=== PATIENT | male | born 1985 | race Two or more races ===

== ENCOUNTER 2024-12-02 15:08 | Inpatient (IN) | payer OTHER, SELFPAY ==
[2024-12-02] VITALS (10 sets, daily range): BP systolic 143–169; BP diastolic 88–101; PULSE 90–105; RESP 16–24; TEMP 36.7–37.2; O2SAT 86–99; BMI 52.4
--- NOTE | 2024-12-02 15:35 | XR_ITS ---
Examination: PA lateral chest 2 views Technique: Upright AP lateral chest 2 views Exam date and time: December 02, 2024 1631 hrs. Indications: Shortness of breath beginning 2 days ago. Findings: Mild heart failure Mild to moderate enlargement left ventricle Prominent vascular congestion No lobar pneumonia The osseous structures are intact Impression: Mild heart failure
--- NOTE | 2024-12-02 15:36 | EKG_ITS ---
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
--- NOTE | 2024-12-02 15:36 | PD.EDRME ---
Rapid Medical Screening Exam E Arrival date/time: 12/02/24 15:08 This is a 39-year-old male that comes in with complaints of shortness of breath, cough, chest pressure And wheezing. Patient states it has been going on for the last few days. Patient has a history of high blood pressure but does not take medication for this. Patient denies fever, nausea, vomiting, diarrhea. I have greeted and performed a focused initial assessment of this patient. Initial appropriate labs ordered at this time. A comprehensive ED assessment and evaluation of the patient and analysis of all test and completion of medical decision making process will be conducted by additional ED provider. Chief Complaint: Shortness of Breath/Dyspnea Time Seen by Provider: 12/02/24 15:30 Vital signs: Vital Signs Temperature 98.5 F 12/02/24 15:31 Pulse Rate 103 H 12/02/24 15:31 Respiratory Rate 24 H 12/02/24 15:31 Blood Pressure 159/89 H 12/02/24 15:31 Pulse Oximetry (%) 95 12/02/24 15:31 Oxygen Delivery Method Room Air 12/02/24 15:31
[2024-12-02] MEDS: ALBUTEROL RT 2.5 MG/0.5 ML NEBU INH (15:50)
[2024-12-02] MEDS: SODIUM CHLORIDE RT SOL 0.9% 3 ML NEBU INH (15:50)
[2024-12-02 16:07] LABS: Basophils % (Auto) 1 % (0-2.5); Eosinophils # (Auto) 0.1 Thou/mm3 (0.0-0.5); Eosinophils % (Auto) 2 % (0-10); Hematocrit 48.9 % (41.0-53.0); Hemoglobin 15.7 g/dL (13.5-16.0); Immature Granulocytes % (Auto) 1 % (0-0); Immature Granulocytes Auto 0.04 Thou/mm3 (0.00-0.00); Lymphocytes # (Auto) 0.9 Thou/mm3 (1.0-4.8); Lymphocytes % (Auto) 16 % (10-50); Mean Corpuscular HGB Conc 32.1 g/dl (31.0-37.0); Mean Corpuscular Hemoglobin 29.6 pg (25.0-35.0); Mean Corpuscular Volume 92 fL (80-100); Monocytes # (Auto) 0.7 Thou/mm3 (0.0-0.8); Monocytes % (Auto) 13 % (0-12); Neutrophils # (Auto) 3.7 Thou/mm3 (1.8-7.7); Neutrophils % (Auto) 68 % (37-80); Nucleated Red Blood Cell % 0 /100 WBC (0); Platelet Count 208 Thou/mm3 (140-440); RDW Standard Deviation 46.4 fL (35.1-43.9); White Blood Count 5.5 Thou/mm3 (3.8-10.6)
[2024-12-02 16:33] LABS: Alanine Aminotransferase 23 U/L (10-49); Albumin/Globulin Ratio 1.7 (1.2-2.2); Alkaline Phosphatase 57 U/L (46-116); Anion Gap 6 (7-16); Aspartate Amino Transferase 21 U/L (0-34); BUN/Creatinine Ratio 10 Ratio (12-20); Bilirubin,Total 0.3 mg/dL (0.3-1.2); Blood Urea Nitrogen 8 mg/dL (9-23); Calcium 9.6 mg/dL (8.3-10.6); Calcium (Corrected) 9.6 mg/dL (8.5-10.1); Carbon Dioxide 33.8 mMol/L (20.0-31.0); Chloride 98 mMol/L (98-107); Creatinine (Component) 0.8 mg/dL (0.6-1.3); Estimated Creatinine Clearance 168.8 mL/min (>60); Globulin 2.9 gm/dL (2.3-3.5); Glucose 116 mg/dL (74-106); Osmolality,Calculated 274 (275-295); Potassium 4.2 mMol/L (3.4-5.1); Sodium 138 mMol/L (136-145); Total Protein 7.9 gm/dL (5.7-8.2); Troponin I < 0.002 ng/mL (0.0-0.045); eGFR > 60 See Note
--- NOTE | 2024-12-02 18:36 | PD.EDSOB ---
ED SOB =RME/HPI General Chief Complaint: Shortness of Breath/Dyspnea Stated Complaint: cp, sob, cough Time Seen by Provider: 12/02/24 15:30 Source: patient Arrival date/time: 12/02/24 15:08 Mode of arrival: ambulatory Limitations: no limitations RME / HPI RME / HPI Narrative: 12/02/24 15:08 This is a 39-year-old male that comes in with complaints of shortness of breath, cough, chest pressure And wheezing. Patient states it has been going on for the last few days. Patient has a history of high blood pressure but does not take medication for this. Patient denies fever, nausea, vomiting, diarrhea. I have greeted and performed a focused initial assessment of this patient. Initial appropriate labs ordered at this time. A comprehensive ED assessment and evaluation of the patient and analysis of all test and completion of medical decision making process will be conducted by additional ED provider. Dr. Avelar?s Main ED Evaluation: 39-year-old male presents to the emergency department with 2 days of cough, increasingly severe shortness of breath, wheezing and substernal chest pressure which is mild. Patient states he is a non-smoker. He has hypertension but states the doctors told him to use diet and exercise to lose some weight and he was supposed to go back to see them for reevaluation. He has not done that yet. No hypercholesterolemia or diabetes. No family history of early onset cardiac disease. Patient states he started coughing 2 days ago and its become more severe over time. The chest pressure began light about the same time as the coughing began. He states he was playing with his nephews today when he became very short of breath and became concerned and came to the emergency department. Patient denies fevers, shakes, chills, sweats. No runny nose or sneezing. No nausea, vomiting, diarrhea. No diaphoresis. No radiation of the substernal chest pressure. Patient has never experienced symptoms like this before. At home, mom gave him a albuterol neb as well as her Advair (or Advair like medication). Patient states the neb helped a little bit but the other medicine did not help very much. Patient also states that he thinks that he has obstructive sleep apnea and he usually sleeps on his stomach. Related Data Home Medications ?Medication ?Instructions ?Recorded ?Confirmed No Known Home Medications 12/03/24 12/03/24 Allergies Allergy/AdvReac Type Severity Reaction Status Date / Time amoxicillin Allergy Verified 12/02/24 15:09 Review of Systems Review of Systems Systems Reviewed: All systems reviewed, normal except as documented Past Medical History Past Medical History NEUROLOGIC: Negative Neurological Disorders CARDIAC: Positive Hypertension; Negative Cardiac Disorders or Congestive Heart Failure RESPIRATORY: Negative Respiratory Disorders, Chronic Obstructive Pulmonary Disease (COPD) or Asthma GASTROINTESTINAL: Negative Gastrointestinal Disorders GENITOURINARY: Negative Genitourinary Disorders or Renal Disease MUSCULOSKELETAL: Negative Musculoskeletal Disorders ENDOCRINE: Negative Diabetes Mellitus Type 1 or Diabetes Mellitus Type 2 HEMATOLOGIC: Negative Blood Disorders or Sickle Cell Disease Social History SMOKING STATUS: Never smoker ED Exam Narrative Physical exam: GENERAL APPEARANCE: alert and oriented x 4, well-developed, well-nourished, no acute distress. Patient is morbidly obese VITALS: All vitals were reviewed and the pulse ox is 95% on room air, which is normal according to my interpretation. HEENT: Normocephalic, atraumatic; pupils equal, round, reactive to light; EOMI; mucous membranes pink, moist; oropharynx clear NECK: Supple LUNGS: Some tachypnea at about 25-30, he has wheezing throughout all lung field, diminished lung sounds in the left base. HEART: mild tachycardia and right at 100-105; normal S1, S2; no murmurs ABDOMEN: non distended; normal BS; soft, no tenderness, no guarding, no rebound; no masses, no organomegaly, no hernia BACK: no CVA tenderness EXTREMITIES: atraumatic; no edema NEUROLOGIC: awake; alert and oriented x4; cranial nerves II-XII grossly intact; no focal sensory or motor deficits PSYCHIATRIC: appropriate mood and affect SKIN: warm, dry, normal color; no rashes General Limitations: Present no limitations Course Quality Measures none Orders Category Date Time Status Bedside COVID-19 Antigen Test NOW Care 12/02/24 15:35 Active Bedside Influenza A&B Antigen Test NOW Care 12/02/24 15:[address] Screening NOW Care 12/02/24 18:47 Active Face Cleaner Q4H START 00 Care 12/02/24 18:44 Active Continuous Pulse Oximetry ONCE Care 12/02/24 18:44 Active EKG (ED ONLY) *Do not use* NOW Care 12/02/24 15:36 Completed Insert IV STAT Care 12/02/24 18:[address] angio chest Stat Exams 12/02/24 18:47 Completed EKG (ED Only) Stat Exams 12/02/24 15:36 Draft XR chest 2V Stat Exams 12/02/24 15:35 Completed Arterial Blood Gas Stat Lab 12/03/24 00:50 Completed B-Type Natriuretic Peptide Stat Lab 12/02/24 19:15 Completed Blood Culture (Lab) Stat Lab 12/02/24 19:15 Received CBC Stat Lab 12/02/24 15:45 Completed Comprehensive Metabolic Panel Stat Lab 12/02/24 15:45 Completed Drug Screen,Urine Stat Lab 12/02/24 19:15 Ordered LDH (Lactate Dehydrogenase) Stat Lab 12/02/24 19:15 Completed Lactate (Lactic Acid) Stat Lab 12/02/24 19:15 Completed Lipase Stat Lab 12/02/24 19:15 Completed Partial Thromboplastin Time Stat Lab 12/02/24 19:15 Completed Phosphorous Stat Lab 12/02/24 19:15 Completed Procalcitonin Stat Lab 12/02/24 19:15 Completed Prothrombin Time with INR Stat Lab 12/02/24 19:15 Completed Troponin I Stat Lab 12/02/24 15:45 Completed Troponin I Stat Lab 12/02/24 19:15 Completed Urinalysis Stat Lab 12/02/24 18:45 Ordered ALBUTEROL RT 0.5ml [Proventil Rt 0.5ml] Med 12/02/24 15:35 Discontinued 2.5 mg INH X1 ONE Albuterol/Ipratr Rt Nancy [Duoneb Rt Nancy] Med 12/02/24 21:14 Discontinued 3 ml INH X1 ONE Azithromycin Inj [Zithromax Inj] 500 mg Med 12/02/24 18:49 Discontinued Sodium Chloride 0.9% 250 ml [Ns] 250 ml IV X1 Sodium Chloride Rt Nancy 0.9% [NS Rt Nancy 0.9%] Med 12/02/24 15:35 Active 3 ml INH PRN PRN cefTRIAXone/D5w 1gm IV premix [Rocephin/D5w 1gm IV Med 12/02/24 18:48 Discontinued premix] 50 ml IV X1 Oxygen Delivery NOW RT 12/02/24 18:44 Active Vital Signs Vital signs: Vital Signs Temperature 98.5 F 12/02/24 15:31 Pulse Rate 103 H 12/02/24 15:31 Respiratory Rate 24 H 12/02/24 15:31 Blood Pressure 159/89 H 12/02/24 15:31 Pulse Oximetry (%) 95 12/02/24 15:31 Oxygen Delivery Method Room Air 12/02/24 15:31 Procedures -ED Procedure Comment Patient's EKG at 16:00 showed sinus tachycardia at 100 with right axis deviation, no ectopy. No signs of acute ischemia. QRS is 85 and QTc is 372. Shortness of Breath / Dyspnea MDM Narrative [facility] Narrative:: On exam the patient has morbid obesity, Some tachypnea at about 25-30, he has wheezing throughout all lung field, diminished lung sounds in the left base, mild tachycardia and right at 100-105. Patient arrived here in the emergency department and was given an albuterol neb. A basic workup was ordered including CMP, CBC and a Trop. Chest x-ray and EKG. 2 view chest x-ray is being read by Dr. Mackay as showing mild heart failure, however I disagree. To me it looks more like patient has a left lower lobe pneumonia more than failure. He also looks like he has cardiomegaly or perhaps a wide mediastinum. I have ordered a CT chest with contrast. I also ordered a full cardiac workup as well as sepsis workup. I have included a BNP, lactate, blood cultures. Patient's EKG at 16:00 showed sinus tachycardia at 100 with right axis deviation, no ectopy. No signs of acute ischemia. QRS is 85 and QTc is 372. 21:20 CT shows patient has a left lower lobe and right upper lobe pneumonia. On 2 L nasal cannula the patient is right at 92%. He arrived tachycardic and tachypneic. With his 2 abnormal vital signs and his infection patient meets sepsis criteria. Plus he is too symptomatic to go home. Will admit. 21:22 Dr Rodriguez. We discussed the patient's case in detail. She kindly agreed to come see the patient for admission. I spoke with the patient and mom at length regarding need for admission. Scribe Attestation: I, Cecily Gutierrez, am scribing for and in the presence of Dr. Avelar. Provider Notation: Although this document has been carefully reviewed, there may still be some phonetic and other typographical errors. These errors are purely grammatical due to imperfections in the software program and should not be construed in any way to compromise the substance of the patient's medical care during this visit. Patient data External records reviewed:: [facility] previous records Clinical information provided by:: patient Social determinants that could affect healthcare access:: none Patient has the following chronic illnesses:: Hypertension How is presenting disease/condition affected by chronic disease/condition?: uneffected by Evaluation data The following diagnostics were reviewed and interpreted by me:: lab results, radiology exam(s) and EKG tracing(s) Lab and/or radiology exams considered but not ordered:: None Interpretation Summary: Examination: PA lateral chest 2 views Exam date and time: December 02, 2024 1631 hrs. Indications: Shortness of breath beginning 2 days ago. Findings: Mild heart failure Mild to moderate enlargement left ventricle Prominent vascular congestion No lobar pneumonia The osseous structures are intact Impression: Mild heart failure Dictated By: Jordon Headley MD Examination: CTA chest with intravenous contrast Date and time of exam: December 02, 2024 1915 hrs. Indications: Hypoxia shortness of breath difficulty breathing beginning 2 days ago Findings: No thoracic aortic aneurysm dilatation Main pulmonary artery segment 33 mm No pulmonary artery emboli Mild pneumonia in the right upper lobe and left base No visualized liver lesion No gallstones No pancreatic mass Kidneys partially visualized no hydronephrosis Impression: Negative for pulmonary artery emboli mild pneumonia right upper lobe and left base Dictated By: Jordon Headley MD Medications / Prescriptions Medications or Prescriptions considered but not ordered:: None Medication administrations:: Medication Administration History Acetaminophen (Acetaminophen 325 Mg Tablet) 650 mg PO Q6H PRN PRN Reason: Fever >101.5 Stop: 01/01/25 22:24 Albuterol/Ipratropium (Albuterol/Ipratropium (Duoneb) Rt Nancy 3 Ml Nebu) 3 ml INH Q6HRRT EVY Stop: 01/02/25 00:59 Last Admin: 12/03/24 00:35 Dose: 3 ml Documented By: JAYME Losartan Potassium (Losartan Potassium 25 Mg Tablet) 25 mg PO QDAY [facility] Stop: 01/02/25 08:59 Magnesium Hydroxide (Milk Of Magnesia Susp 30 Ml Udc) 30 ml PO QDAY PRN; Protocol PRN Reason: CONSTIPATION Stop: 01/01/25 22:24 Ondansetron HCl (Ondansetron Inj 2 Mg/Ml Inj 2 Ml) 4 mg IV Q6H PRN; Protocol PRN Reason: NAUSEA OR VOMITING Stop: 01/01/25 22:24 Pantoprazole Sodium (Pantoprazole 40 Mg Tablet) 40 mg PO QDAY EVY Stop: 01/02/25 08:59 Sodium Chloride (Sodium Chloride Rt Nancy 0.9% 3 Ml Nebu) 3 ml INH PRN PRN PRN Reason: SOLN Stop: 01/01/25 15:34 Last Admin: 12/02/24 15:50 Dose: 3 ml Documented By: CHAGO Discontinued Medications Albuterol (Albuterol Rt 2.5 Mg/0.5 Ml Nebu) 2.5 mg INH X1 ONE Stop: 12/02/24 15:36 Last Admin: 12/02/24 15:50 Dose: 2.5 mg Documented By: CHAGO Albuterol/Ipratropium (Albuterol/Ipratropium (Duoneb) Rt Nancy 3 Ml Nebu) 3 ml INH X1 ONE Stop: 12/02/24 21:15 Last Admin: 12/02/24 21:25 Dose: 3 ml Documented By: JAYME Furosemide (Furosemide Inj 10 Mg/Ml 4ml Vial) 40 mg IVP X1 ONE Stop: 12/02/24 22:53 Last Admin: 12/02/24 23:53 Dose: 40 mg Documented By: SRINIVASA Ceftriaxone Sodium/Dextrose (Rocephin/D5w 1gm Iv Premix) 50 mls @ 100 mls/hr IV X1 ONE Stop: 12/02/24 19:17 Last Infusion: 12/02/24 21:45 Dose: Infused Documented By: Admin: 12/02/24 20:20 Dose: 100 mls/hr Documented By: SRINIVASA Azithromycin 500 mg/ Sodium (Chloride) 250 mls @ 250 mls/hr IV X1 ONE Stop: 12/02/24 19:48 Last Infusion: 12/02/24 21:50 Dose: Infused Documented By: Admin: 12/02/24 20:46 Dose: 250 mls/hr Documented By: SRINIVASA Losartan Potassium (Losartan Potassium 25 Mg Tablet) 25 mg PO X1 ONE Stop: 12/03/24 01:00 Sodium Chloride (Sodium Chloride Rt 10% 15 Ml Nebu) 5 ml INH X1 ONE Stop: 12/02/24 22:26 Last Admin: 12/03/24 01:04 Dose: Not Given Documented By: NE Non-Admin Reason: Other, see note Comments: pt able to expectorate As above Consultations Consultation(s) initiated? (list below): Yes Consultation #1 (Physician, Specialty, Details): See MDM Diagnosis Shortness of Breath Differential Diagnosis: acute exacerbation of chronic obstructive airways disease, congestive heart failure and community acquired pneumonia Most likely diagnosis given after review of the tests above:: CHF Admission Indicated Admission indicated?: indicated Admission Request Was there a request for admission?: Yes Admission Attestation Admission request attestation: Discussed case with [] from Hospitalist service regarding admission. Discussed patients ED course, exam findings, labs, and radiology results. The Hospitalist [agrees,declines] to accept the patient for admission. Disposition Plan Disposition Plan: Admit Critical Care Time Critical Care Time Critical Care Time: Yes Total Critical Care Time (min.): 35 Attestation: The high probability of sudden, clinically significant deterioration in the patient?s condition required the highest level of my preparedness to intervene urgently. The services I provided to this patient were to treat and/or prevent clinically significant deterioration. Services included the following: chart data review, reviewing nursing notes and/or old charts, documentation time, legal nurse consultant collaboration regarding findings and treatment options, medication orders and management, direct patient care, vital sign assessments and ordering, interpreting and reviewing diagnostic studies and lab tests. Aggregate critical care time includes only time during which I was engaged in work directly related to the patient?s care, as described above, whether at bedside or elsewhere in the Emergency Department. It did not include time spent performing other reported procedures or the services of residents, students, nurses or physician assistants. Discharge Plan Plan Patient Disposition: Admit Acute Care w/in Hospital Patient condition on transfer: Stable Problem List Clinical Impression: Congestive heart failure
--- NOTE | 2024-12-02 18:47 | XR_ITS ---
Examination: CTA chest with intravenous contrast 2-D reconstructions 3-D reconstructions, vascular Date and time of exam: December 02, 2024 1915 hrs. Indications: Hypoxia shortness of breath difficulty breathing beginning 2 days ago CTDI: vol (mGy) 47.3 DLP: (mGycm) 619 Technique: Multiple axial sections of the thorax have been obtained. 3 mm slice thickness, from below the hemidiaphragms to above the apices of the lungs. Mediastinal and lung density settings have been obtained. 2-D sagittal and coronal reconstructions. 3-D angiographic renderings, 3-D volume renderings, 3D post processing, vascular maximum intensity projections obtained. Contrast administered is 100 cc Isovue-370. Low dose protocols were performed. One or more of the following dose reduction techniques were used; automated exposure control, adjustment of the mA and/or KV according to patient size, use of iterative reconstruction technique. Findings: No thoracic aortic aneurysm dilatation Main pulmonary artery segment 33 mm No pulmonary artery emboli Mild pneumonia in the right upper lobe and left base No visualized liver lesion No gallstones No pancreatic mass Kidneys partially visualized no hydronephrosis Impression: Negative for pulmonary artery emboli mild pneumonia right upper lobe and left base
[2024-12-02 20:18] LABS: Lactate (Lactic Acid) 0.7 mMol/L (0.4-2.0)
[2024-12-02] MEDS: cefTRIAXone/D5w 1gm IV premix 50 ML IV (20:20)
[2024-12-02 20:35] LABS: Prothrombin Time 11.3 Seconds (9.0-12.2)
[2024-12-02 20:39] LABS: B-Type Natriuretic Peptide < 20 pg/mL (0-100)
[2024-12-02 20:44] LABS: Lipase 33 U/L (12-53); Phosphorous 3.8 mg/dL (2.4-5.1); Troponin I < 0.002 ng/mL (0.0-0.045)
[2024-12-02] MEDS: AZITHROMYCIN INJ 500 MG in SODIUM CHLORIDE 0.9% 250 ML 250 ML 250 MG IV (20:46)
[2024-12-02 21:02] LABS: Procalcitonin 0.12 ng/ml (0.0-0.49)
[2024-12-02 21:19] LABS: LDH (Lactate Dehydrogenase) 212 U/L (120-246)
[2024-12-02] MEDS: ALBUTEROL/IPRATROPIUM (Duoneb) RT SOL 3 ML NEBU INH (21:25)
--- NOTE | 2024-12-02 22:30 | ECHO_ITS ---
Transthoracic Echo Report Ht (in): 66 Wt (lb): 325 Exam Location: Portable Status: Emergency Bass Fisher: Naila Quijano Indications: Procedure Performed: BP: 137 / 83 HR: 98 Rhythm: Sinus Technical Quality: Technically difficult study MEASUREMENTS (Male / Female) Normal Values 2D ECHO LV Diastolic Diameter PLAX 4.9 cm 4.2 - 5.9 / 3.9 - 5.3 cm LV Systolic Diameter PLAX 3.6 cm IVS Diastolic Thickness 1.1 cm 0.6 - 1.0 / 0.6 - 0.9 cm LVPW Diastolic Thickness 1.1 cm 0.6 - 1.0 / 0.6 - 0.9 cm LV Relative Wall Thickness 0.4 LVOT Diameter 2.0 cm LA Volume Index 15.0 cm?/m? 16 - 28 cm?/m? Ascending Aorta Diameter 3.2 cm M-MODE Aortic Root Diameter MM 3.9 cm LA Systolic Diameter MM 4.0 cm LA Ao Ratio MM 1.0 AV Cusp Separation MM 2.1 cm DOPPLER AV Peak Velocity 136.0 cm/s AV Peak Gradient 7.4 mmHg AV Mean Gradient 4.0 mmHg AV Velocity Time Integral 26.4 cm LVOT Peak Velocity 116.0 cm/s LVOT Peak Gradient 5.4 mmHg LVOT Velocity Time Integral 24.0 cm LVOT Cardiac Index 2726.6 cm?/min?m? AV Area Cont Eq vti 2.9 cm? AV Area Cont Eq pk 2.7 cm? MV Peak Velocity 94.7 cm/s MV Peak Gradient 3.6 mmHg MV Mean Velocity 69.5 cm/s MV Mean Gradient 2.0 mmHg MV Area PHT 4.8 cm? Mitral E Point Velocity 93.1 cm/s Mitral A Point Velocity 96.5 cm/s Mitral E to A Ratio 1.0 LV E' Lateral Velocity 10.9 cm/s Mitral E to LV E' Lateral Ratio 8.5 LV E' Septal Velocity 8.8 cm/s Mitral E to LV E' Septal Ratio 10.6 FINDINGS Left Ventricle Normal left ventricular size, wall thickness, systolic function with no obvious regional wall motion abnormalities. The ejection fraction is visually estimated at 55-60%. Right Ventricle The right ventricle is normal in size and systolic function. Left Atrium The left atrium is normal by two-dimensional, color flow and Doppler imaging with no structural abnormalities, no thrombus formation present. Right Atrium The right atrium is normal by two-dimensional imaging, color flow and Doppler imaging with no struct ural abnormalities, no thrombus formation present. Atrial Septum The interatrial septum appears normal with no evidence of a shunt. Aorta The aorta is normal by two-dimensional, color flow and Doppler interrogation. Mitral Valve The mitral valve is normal by two-dimensional, color flow and Doppler interrogation. There is trace mitral valve regurgitation. Aortic Valve The aortic valve is trileaflet and normal by two-dimensional, color flow and Doppler interrogation. There is no significant aortic valve regurgitation. Tricuspid Valve The tricuspid valve is normal by two-dimensional, color flow and Doppler interrogation. There is tra ce tricuspid valve regurgitation. Pulmonic Valve The pulmonic valve is not well visualized. There is no significant pulmonic valve regurgitation. Vessels The pulmonary artery appears normal. The inferior vena cava pulmonary and hepatic veins appear heather l. Pericardium The pericardium is normal by two-dimensional imaging. There is no significant pericardial effusion. CONCLUSIONS Suboptimal images due to body habitus. Normal LV size and function. Estimated EF 55-60% Normal RV size and function Trace mitral and trace tricuspid regurgitation Vijaya Liu (Electronically Signed) Final Date: 04 December 2024 17:55
--- NOTE | 2024-12-02 22:31 | PD.RESHP ---
Documentation for date of: 12/02/24 HPI History of Present Illness Chief complaint: Shortness of breath History of present illness: A 39-year-old male with mother on his bedside with significant past medical history of hypertension not on medication, borderline diabetes not on medication presented to the hospital with chief complaints of shortness of breath and cough since 2 days. Patient was apparently normal 2 days back, since then patient developed sudden onset of shortness of breath which was gradually progressive and worsening, associated with orthopnea which was present for a long time, denies PND attacks. Stated that he is getting short of breath even with his routine activities like taking his dog walk for the dog. Endorsed that his always complains about his snoring and also notices morning fatigue and tiredness despite sleeping well. Endorsed that he is having lower extremity swelling for a while now. Cough his present since 2 days and associated with mucoid sputum without any hemoptysis. Denies chest pain, wheezing, palpitations, abdominal pain, fever, burning micturition. In the home before coming to the ED, patient used a humidifier following which he had some relief ED Course: -Initial vitals were blood pressure 159/89 mmHg, pulse rate 103 bpm, respiratory rate 24/min, temperature 98.5 ?F, SpO2 95% with 4 L oxygen. -Labs significant for CBC is within normal limits, CMP showed bicarb 33.8, BNP and troponins were negative. Procalcitonin is 0.12. -EKG showed sinus tachycardia. Chest x-ray showed bilateral moderate vascular congestion. CTA chest is negative for pulmonary emboli -In the ED, patient was given nebulization, azithromycin, ceftriaxone, Lasix -Patient was admitted for acute hypoxic respiratory failure secondary to OHS/CECILIA Past medical history: Hypertension, borderline diabetes Past surgical history: Nothing significant Social history: Denies smoking, alcohol or illicit drug abuse Allergies: Amoxicillin Review of Systems Review of Systems Narrative Review of Systems: Constitutional: No Weight Change, No Fever, No Chills, No Night Sweats, No Fatigue, No Malaise ENT/Mouth: No Hearing Changes, No Ear Pain, No Nasal Congestion, No Sinus Pain, No Hoarseness, No sore throat, No Rhinorrhea, No Swallowing Difficulty Eyes: No Eye Pain, No Swelling, No Redness, No Foreign Body, No Discharge, No Vision Changes Cardiovascular: No Chest Pain, SOB, No PND, Dyspnea on Exertion, Orthopnea, Edema, No Palpitations Respiratory: No Cough, No Sputum, No Wheezing, Dyspnea Gastrointestinal: No Nausea, No Vomiting, No Diarrhea, No Constipation, No Pain, No Heartburn, No Anorexia, No Dysphagia, No Hematochezia, No Melena, No Flatulence, No Jaundice Genitourinary: No Dysuria, No Urinary Frequency, No Hematuria, No Urinary Incontinence, No Urgency, No Flank Pain, No Urinary Flow Changes, No Hesitancy Musculoskeletal: No Arthralgias, No Myalgias, No Joint Swelling, No Joint Stiffness, No Back Pain, No Neck Pain, No Injury History Skin: No Skin Lesions, No Pruritis Neuro: No Weakness, No Numbness, No Paresthesias, No Loss of Consciousness, No Syncope, No Dizziness, No Headache, No Coordination Changes, No Recent Falls Exam Vital Signs Temp Pulse Resp BP Pulse Ox O2 Del Method O2 Flow Rate 98.0 F 95 20 169/95 H 94 L Nasal Cannula 4 12/02/24 21:12/02/24 21:12/02/24 21:12/02/24 21:12/02/24 21:12/02/24 21:12/02/24 21: Narrative Exam General: Awake. Morbidly obese HEENT: Normocephalic, atraumatic, mucous membranes moist. Heart: Regular rate and rhythm, no murmurs. Lungs: Decreased breath sounds noted bilaterally due to body habitus Abdomen: Soft, nondistended, nontender, positive bowel sounds. ?No guarding or rebound tenderness. Neurologic: Alert and oriented x3, no gross neurological deficit, and patient able to move all 4 extremities. Extremities: Bilateral 3+ pitting pedal edema extending up to the knee Skin: No rash or ecchymoses. Results: Labs 12/03/24 04:25 12/02/24 15:45 Labs: Short CBC 12/02/24 Range/Units 15:45 WBC 5.5 (3.8-10.6) Thou/mm3 Hgb 15.7 (13.5-16.0) g/dL Hct 48.9 (41.0-53.0) % Plt Count 208 (140-440) Thou/mm3 BMP 12/02/24 15:45 Sodium 138 Potassium 4.2 Chloride 98 Carbon Dioxide 33.8 H BUN 8 L Creatinine 0.8 Glucose 116 H Calcium 9.6 Cardiac Enzymes 12/02/24 12/02/24 Range/Units 15:45 19:15 Troponin I < 0.002 < 0.002 (0.0-0.045) ng/mL Liver Function 12/02/24 Range/Units 15:45 Total Bilirubin 0.3 (0.3-1.2) mg/dL AST 21 (0-34) U/L ALT 23 (10-49) U/L Alkaline Phosphatase 57 (46-116) U/L Albumin 5.0 (3.5-5.0) gm/dL Quality Measures Quality Measures VTE prophylaxis Medications Home Medications and Allergies Home Medications ?Medication ?Instructions ?Recorded ?Confirmed ?Type No Known Home Medications 12/03/24 12/03/24 History Allergies Allergy/AdvReac Type Severity Reaction Status Date / Time amoxicillin Allergy Verified 12/02/24 15:09 Visit Medications Sodium Chloride (Sodium Chloride Rt Nancy 0.9% 3 Ml Nebu) 3 ml INH PRN PRN PRN Reason: SOLN Stop: 01/01/25 15:34 Last Admin: 12/02/24 15:50 Dose: 3 ml Discontinued Medications Albuterol (Albuterol Rt 2.5 Mg/0.5 Ml Nebu) 2.5 mg INH X1 ONE Stop: 12/02/24 15:36 Last Admin: 12/02/24 15:50 Dose: 2.5 mg Albuterol/Ipratropium (Albuterol/Ipratropium (Duoneb) Rt Nancy 3 Ml Nebu) 3 ml INH X1 ONE Stop: 12/02/24 21:15 Last Admin: 12/02/24 21:25 Dose: 3 ml Ceftriaxone Sodium/Dextrose (Rocephin/D5w 1gm Iv Premix) 50 mls @ 100 mls/hr IV X1 ONE Stop: 12/02/24 19:17 Last Infusion: 12/02/24 21:45 Dose: Infused Azithromycin 500 mg/ Sodium (Chloride) 250 mls @ 250 mls/hr IV X1 ONE Stop: 12/02/24 19:48 Last Admin: 12/02/24 20:46 Dose: 250 mls/hr Assessment & Plan Plan A 39-year-old male with significant past medical history of hypertension not on medication, borderline diabetes not on medication presented to the hospital with chief complaints of shortness of breath and cough since 2 days. # Acute hypoxic respiratory failure # CECILIA/OHS # Morbid obesity # ? Possible underlying CHF -Presented with shortness of breath, cough since 2 days. Associated with lower extremity swelling for a while now. Denies fever, chest pain -Endorsed that he snores at night and feels tired in the morning despite a restful sleep but never got any sleep study -For shortness of breath, patient used humidifier for his mom and felt relief instantaneously -In the ED, patient was found to have wheeze on examination by ED doctor -Vitals in the ED showed blood pressure 159/89 mmHg, pulse rate 103/min, respiratory rate 24/min, SpO2 95% with 4 L oxygen -Lab values are within normal limits except for bicarb 33.8. BNP <20. ABG showed respiratory acidosis with compensated metabolic alkalosis -Chest x-ray showed bilateral moderate vascular congestion. CTA chest is negative for pulmonary embolism -In the ED, patient received a dose of Lasix and nebulizations. Plan -Nebulizations as needed -Blood cultures, sputum for culture and sensitivity were ordered -Saline nebulizations as needed -BiPAP at bedtime daily -Oxygen as needed -Ceftriaxone and azithromycin are ordered [12/02-] -Lipid profile, TSH is ordered #History of hypertension -Patient was diagnosed with hypertension and not on any medication, recommended dietary modification and weight loss by his PCP -Blood pressure at the time of admission is 159/89 mmHg -Started on losartan 25 Mg p.o. daily and titrate the dose as needed -Educated on weight loss and salt restriction # History of borderline diabetes -A1c is ordered, follow-up with that and add medications accordingly Hospital Maintenance: Dispo: Med/tele DVT ppx: Lovenox GI ppx: Protonix Diet: low sodium IV lines: Periheral Code status:FULL Patient plan of care was discussed with the attending physician, Dr. Laney Hernandez, PGY1 Attending Provider Attestation/Addendum Face to face evaluation was performed by me. I have personally seen and examined the patient. I discussed the assessment and plan with the entire medicine team. I reviewed available medical records, imaging studies, laboratory results. I agree with the above subjective data, objective findings, assessment and plan except as corrected by me or noted below # Acute hypoxic respiratory failure # Suspect CECILIA/OHS exacerbation # Morbid obesity # Possible acute CHF, unknown type likely diastolic. Give IV diuresis with furosemide 40 mg # Possible pneumonia, community-acquired, likely bacterial -, Obtain echo Wean oxygen as able- No fever/leukocytosis /chills, cough could be from volume overload as well?obtain procalcitonin-CTA also read as pneumonia right upper and left lower lobes. On empiric community-acquired pneumonia antibiotic coverage.
--- NOTE | 2024-12-02 22:44 | PC.NURSE ---
since neb tx and O2, pt feels much better. Resting quietly with family at bedside. Pt given sandwich and juice.
[2024-12-02] MEDS: FUROSEMIDE INJ 10 MG/ML 4ML VIAL 40 MG IVP (23:53)
[2024-12-03] VITALS (18 sets, daily range): BP systolic 109–162; BP diastolic 75–102; PULSE 87–108; RESP 16–96; TEMP 36.4; O2SAT 93–99
[2024-12-03] MEDS: ALBUTEROL/IPRATROPIUM (Duoneb) RT SOL 3 ML NEBU INH ×4 (00:35→19:05)
[2024-12-03 01:02] LABS: Base Excess 9 (-3-3); HCO3 39 mEq/L (20-26); Inspired Oxygen, FIO2 44 %; O2 Saturation 91 % (91-98); PCO2 70 mmHg (32.0-48.0); PO2 63 mmHg (83-108); pH, Arterial 7.35 (7.35-7.45)
[2024-12-03 01:03] LABS: Allen Test Performed/OK; Puncture Site Right Radial
--- NOTE | 2024-12-03 01:05 | PC.RT ---
sputum sent to lab, abg sent
--- NOTE | 2024-12-03 01:41 | PC.NURSE ---
86% O2 sat on 4L/min/nc O2 inh- Increased to 6L/min/nc.
--- NOTE | 2024-12-03 02:02 | PC.NURSE ---
91% O2 sat on 6L/min/nc O2 inh. Nose clogged and congested per pt.- Changed to Oxymask at 6L/min with 97% O2 sat.
[2024-12-03 02:14] LABS: Collection Type, Urine Clean Catch; RBC,Urine 0 /hpf (0-3); WBC,Urine 0 /hpf (0-5)
[2024-12-03] MEDS: LOSARTAN POTASSIUM 25 MG TABLET PO ×2 (02:16→09:54)
[2024-12-03 02:26] LABS: Bilirubin,Urine Negative (Negative); Blood,Urine Negative (Negative); Clarity,Urine Clear (Clear/Hazy); Color,Urine Colorless (Lt Yel-Yel); Glucose, Urine Negative (Negative); Ketones,Urine Negative (Negative); Leukocyte Esterase,Urine Negative (Negative); Nitrite,Urine Negative (Negative); Protein,Urine Negative (Neg - Trace); Specific Gravity,Urine 1.008 (1.001-1.035); Squamous Epithelial Cell,Urine < 1 /hpf (0-5); Urobilinogen,Urine Negative mg/dL (0.0-1.0)
[2024-12-03 02:30] LABS: Amphetamine/Methamp Scrn,U Negative (Negative); Barbiturate Screen,Urine Negative (Negative); Benzodiazepines Screen,Urine Negative (Negative); Benzoylecgonine Screen, Ur Negative (Negative); Fentanyl Screen,Urine Negative (Negative); Opiate Screen,Urine Negative (Negative); THC Screen,Urine Negative (Negative)
[2024-12-03] MEDS: guaiFENesin SYRUP 200 MG/10 ML UDC 100 MG PO (03:39)
[2024-12-03 05:56] LABS: Basophils % (Auto) 1 % (0-2.5); Eosinophils # (Auto) 0.1 Thou/mm3 (0.0-0.5); Eosinophils % (Auto) 1 % (0-10); Hematocrit 49.4 % (41.0-53.0); Hemoglobin 15.9 g/dL (13.5-16.0); Immature Granulocytes % (Auto) 1 % (0-0); Immature Granulocytes Auto 0.04 Thou/mm3 (0.00-0.00); Lymphocytes # (Auto) 0.9 Thou/mm3 (1.0-4.8); Lymphocytes % (Auto) 16 % (10-50); Mean Corpuscular HGB Conc 32.2 g/dl (31.0-37.0); Mean Corpuscular Hemoglobin 29.6 pg (25.0-35.0); Mean Corpuscular Volume 92 fL (80-100); Monocytes # (Auto) 0.7 Thou/mm3 (0.0-0.8); Monocytes % (Auto) 11 % (0-12); Neutrophils # (Auto) 4.3 Thou/mm3 (1.8-7.7); Neutrophils % (Auto) 71 % (37-80); Nucleated Red Blood Cell % 0 /100 WBC (0); Platelet Count 179 Thou/mm3 (140-440); RDW Standard Deviation 47.5 fL (35.1-43.9); Red Blood Count 5.37 Miln/mm3 (4.50-5.90)
[2024-12-03 06:29] LABS: Anion Gap 8 (7-16); BUN/Creatinine Ratio 10 Ratio (12-20); Blood Urea Nitrogen 8 mg/dL (9-23); Calcium 9.7 mg/dL (8.3-10.6); Carbon Dioxide 35.7 mMol/L (20.0-31.0); Cardiac Risk Estimate 5.5 RATIO (4.0-6.7); Chloride 94 mMol/L (98-107); Cholesterol 166 mg/dL (132-200); Creatinine (Component) 0.8 mg/dL (0.6-1.3); Estimated Creatinine Clearance 161.3 mL/min (>60); Glucose 114 mg/dL (74-106); HDL Cholesterol 30 mg/dL (40-60); LDL Cholesterol,Calculated 115 mg/dL (0-130); Osmolality,Calculated 274 (275-295); Sodium 138 mMol/L (136-145); Thyroid Stimulating Hormone 4.95 uIU/mL (0.55-4.78); Triglycerides 107 mg/dL (30-150); eGFR > 60 See Note
[2024-12-03 07:15] LABS: Glucose Estimated Average 163 mg/dL (80-131); Hemoglobin A1C 7.3 % Hgb (4.8-6.0)
[2024-12-03] MEDS: SODIUM CL RT SOL 3% 4 ML NEBU (NON-FORMULARY) INH (08:11)
[2024-12-03] MEDS: FUROSEMIDE INJ 10 MG/ML 4ML VIAL 40 MG IVP (09:53)
[2024-12-03] MEDS: PANTOPRAZOLE 40 MG TABLET PO (09:54)
[2024-12-03] MEDS: ENOXAPARIN SOD INJ 40 MG/0.4 ML SYRINGE SC (09:54)
[2024-12-03 10:25] LABS: Free T4 (Free Thyroxine) 1.03 ng/dL (0.89-1.76)
[2024-12-03] MEDS: cefTRIAXone/D5w 1gm IV premix 50 ML IV (10:32)
--- NOTE | 2024-12-03 11:15 | PC.SS ---
Patient is alert/oriented. He resides at home with . Patient is visiting from [place] area. His d/c plan is to return to [place]. Patient admitted for CHF. Patient is currently on 6L of 02 and is using a Bipap at night. Patient states at home he is not using any respiratory devices. Patient is independent with ADL's. He follows with Dr. Nunez in [place] and last appt. was in February of 2024 at [place]. Patient's , Emilia, is his alt medical decision maker. transportation: family d/c plan: home alt medical decision maker: ,
--- NOTE | 2024-12-03 11:26 | ESPR_ITS ---
Documentation for date of: 12/03/24 Subjective Subjective Interval history: Patient was seen at bedside this morning. No overnight events. Patient stated that he thinks that his BiPAP overnight was at a setting that was too high for him and was asking to see if the settings could be changed so that he can use the BiPAP at night. He states that he is unable to lay flat on his back as he gets very uncomfortable and short of breath. She stated that prior to coming in with shortness of breath or cough he was able to walk without any feeling short of breath. Explained to patient findings on chest x-ray as well as CTA. Blood cultures grew GPC's in 1 bottle therefore placed patient on vancomycin. Exam Vital Signs Temp Pulse Resp BP Pulse Ox O2 Del Method O2 Flow Rate 97.6 F 94 20 123/81 96 Nasal Cannula 6 12/03/24 08:00 12/03/24 09:54 12/03/24 08:10 12/03/24 09:54 12/03/24 08:10 12/03/24 08:00 12/03/24 08:10 Narrative Exam General: A/O x3, obese on oxy mask Eyes: PERRL, EOMI. Anicteric, vision grossly intact. Ears: No ear pain, no ear discharge, Hearing grossly intact. Nose: No nasal discharge. Mouth/Throat: Dry mucous membranes, no redness, no lesions. Neck: Neck supple, non-tender, no cervical lymphadenopathy. Lungs: Decreased ZOILA likely due to body habitus, No accessory muscle use. Cardio: Normal S1/S2, regular rhythm, no murmurs, no JVD Abdomen: Soft, non-tender, no palpable masses, peristalsis present, no guarding or rebound. Extremities: Symmetrical, no significant deformities, no peripheral edema , non-tender, peripheral pulses presents. Skin: No rashes, no lesions, warm to touch. Neuro: No focal neurological deficits. Psych: Cooperative, appropriate mood and effect. Objective Labs 12/04/24 05:16 12/04/24 05:16 Labs: Laboratory Results - last 24 hr 12/02/24 12/02/24 12/03/24 15:45 19:15 00:50 WBC 5.5 RBC 5.30 Hgb 15.7 Hct 48.9 MCV 92 MCH 29.6 MCHC 32.1 RDW Std Deviation 46.4 H Plt Count 208 Neut % (Auto) 68 Lymph % (Auto) 16 [place] % (Auto) 13 H Eos % (Auto) 2 Baso % (Auto) 1 Neut # (Auto) 3.7 Lymph # (Auto) 0.9 L [place] # (Auto) 0.7 Eos # (Auto) 0.1 Baso # (Auto) 0.0 Immature Gran # (Auto) 0.04 H Absolute Nucleated RBC 0.00 Immature Gran % 1 H Nucleated RBC % 0 PT 11.3 INR 1.0 APTT 29.0 Puncture Site Right Radial ABG pH 7.35 ABG pCO2 70 H ABG pO2 63 L ABG HCO3 39 H ABG O2 Saturation 91 ABG Base Excess 9 H FiO2 44 Sodium 138 Potassium 4.2 Chloride 98 Carbon Dioxide 33.8 H Anion Gap 6 L BUN 8 L Creatinine 0.8 Estim Creat Clear Calc 168.8 eGFR > 60 BUN/Creatinine Ratio 10 L Glucose [address] Glu mg/dL Hemoglobin A1c Calculated Osmolality 274 L Lactic Acid 0.7 Calcium 9.6 Corrected Calcium 9.6 Phosphorus 3.8 Total Bilirubin 0.3 AST 21 ALT 23 Alkaline Phosphatase 57 Lactate Dehydrogenase 212 Troponin I < 0.002 < 0.002 B-Natriuretic Peptide < 20 Total Protein 7.9 Albumin 5.0 Globulin 2.9 Albumin/Globulin Ratio 1.7 Triglycerides Cholesterol LDL Cholesterol, Calc HDL Cholesterol Cholesterol/HDL Ratio Lipase 33 Procalcitonin Cancelled 0.12 TSH Free T4 Ur Collection Type Urine Color Urine Clarity Urine pH Ur Specific [place] Urine Protein Urine Glucose (UA) Urine Ketones Urine Blood Urine Nitrite Urine Bilirubin Urine Urobilinogen (Auto) Ur Leukocyte Esterase Urine RBC Urine WBC Ur Squamous Epith Cells Urine Bacteria Urine Opiates Screen Urine Fentanyl Screen Ur Barbiturates Screen U Amphetamin/Meth Scrn U Benzodiazepines Scrn U Cocaine Metab Screen U Marijuana (THC) Screen 12/03/24 12/03/24 12/03/24 01:10 01:24 04:25 WBC 6.0 RBC 5.37 Hgb 15.9 Hct 49.4 MCV 92 MCH 29.6 MCHC 32.2 RDW Std Deviation 47.5 H Plt Count 179 Neut % (Auto) 71 Lymph % (Auto) 16 [place] % (Auto) 11 Eos % (Auto) 1 Baso % (Auto) 1 Neut # (Auto) 4.3 Lymph # (Auto) 0.9 L [place] # (Auto) 0.7 Eos # (Auto) 0.1 Baso # (Auto) 0.0 Immature Gran # (Auto) 0.04 H Absolute Nucleated RBC 0.00 Immature Gran % 1 H Nucleated RBC % 0 PT INR APTT Puncture Site ABG pH ABG pCO2 ABG pO2 ABG HCO3 ABG O2 Saturation ABG Base Excess FiO2 Sodium 138 Potassium 4.0 Chloride 94 L Carbon Dioxide 35.7 H Anion Gap 8 BUN 8 L Creatinine 0.8 Estim Creat Clear Calc 161.3 eGFR > 60 BUN/Creatinine Ratio 10 L Glucose [address] Glu mg/dL 163 H Hemoglobin A1c 7.3 H Calculated Osmolality 274 L Lactic Acid Calcium 9.7 Corrected Calcium Phosphorus Total Bilirubin AST ALT Alkaline Phosphatase Lactate Dehydrogenase Troponin I B-Natriuretic Peptide Total Protein Albumin Globulin Albumin/Globulin Ratio Triglycerides 107 Cholesterol 166 LDL Cholesterol, Calc 115 HDL Cholesterol 30 L Cholesterol/HDL Ratio 5.5 Lipase Procalcitonin TSH 4.95 H Free T4 1.03 Ur Collection Type Clean Catch Urine Color Colorless A Urine Clarity Clear Urine pH 5.0 Ur Specific [place] 1.008 Urine Protein Negative Urine Glucose (UA) Negative Urine Ketones Negative Urine Blood Negative Urine Nitrite Negative Urine Bilirubin Negative Urine Urobilinogen (Auto) Negative Ur Leukocyte Esterase Negative Urine RBC 0 Urine WBC 0 Ur Squamous Epith Cells < 1 Urine Bacteria None Urine Opiates Screen Negative Urine Fentanyl Screen Negative Ur Barbiturates Screen Negative U Amphetamin/Meth Scrn Negative U Benzodiazepines Scrn Negative U Cocaine Metab Screen Negative U Marijuana (THC) Screen Negative ABG Interpretation ABG results: 12/03/24 00:50 ABG pH 7.35 ABG pCO2 70 H ABG pO2 63 L ABG HCO3 39 H ABG O2 Saturation 91 ABG Base Excess 9 H Quality Measures Quality Measures VTE prophylaxis Assessment & Plan Assessment Current Active Medications: Generic Name Dose Route Start Last Admin Trade Name Freq PRN Reason Stop Dose Admin Acetaminophen 650 mg 12/02/24 22:25 Acetaminophen 325 Mg Tablet PO 01/01/25 22:24 Q6H PRN Fever >101.5 Albuterol/Ipratropium 3 ml 12/03/24 01:00 12/03/24 08:10 Albuterol/Ipratropium (Duoneb) Rt Nancy 3 Ml Nebu INH 01/02/25 00:59 3 ml Q6HRRT EVY Administration Azithromycin 500 mg 12/03/24 21:00 Azithromycin 250 Mg Tablet PO 12/10/24 20:59 DAILY@2100 EVY Dextrose 25 ml 12/03/24 08:15 Dextrose 50%-Water Inj 50 Ml Syringe IV 01/02/25 08:14 Q15MIN PRN BG 50-70 responsive npo pt Dextrose 50 ml 12/03/24 08:15 Dextrose 50%-Water Inj 50 Ml Syringe IV 01/02/25 08:14 Q15MIN PRN BG <50 OR BG <70 & pt unresponsive Enoxaparin Sodium 40 mg 12/03/24 09:00 12/03/24 09:54 Enoxaparin Sod Inj 40 Mg/0.4 Ml Syringe SC 12/17/24 08:59 40 mg QDAY EVY Administration Furosemide 40 mg 12/03/24 09:00 12/03/24 09:53 Furosemide Inj 10 Mg/Ml 4ml Vial IVP 01/02/25 08:59 40 mg QDAY EVY Administration Glucagon 1 mg 12/03/24 08:15 Glucagon Inj 1 Mg Vial IM Q15MIN PRN BG <70, and no IV access Ceftriaxone Sodium/Dextrose 50 mls @ 100 mls/hr 12/03/24 09:00 12/03/24 10:32 Rocephin/D5w 1gm Iv Premix IV 12/10/24 08:59 100 mls/hr Q12HR EVY Administration Insulin Human Lispro 0 unit 12/03/24 11:30 Insulin Lispro (Admelog) 1 Unit/0.01 Ml Unit SC 01/02/25 11:29 ACHS EVY Protocol Losartan Potassium 25 mg 12/03/24 09:00 12/03/24 09:54 Losartan Potassium 25 Mg Tablet PO 01/02/25 08:59 25 mg QDAY EVY Administration Magnesium Hydroxide 30 ml 12/02/24 22:25 Milk Of Magnesia Susp 30 Ml Udc PO 01/01/25 22:24 QDAY PRN CONSTIPATION Protocol Ondansetron HCl 4 mg 12/02/24 22:25 Ondansetron Inj 2 Mg/Ml Inj 2 Ml IV 01/01/25 22:24 Q6H PRN NAUSEA OR VOMITING Protocol Pantoprazole Sodium 40 mg 12/03/24 09:00 12/03/24 09:54 Pantoprazole 40 Mg Tablet PO 01/02/25 08:59 40 mg QDAY EVY Administration Sodium Chloride 3 ml 12/02/24 15:35 12/02/24 15:50 Sodium Chloride Rt Nancy 0.9% 3 Ml Nebu INH 01/01/25 15:34 3 ml PRN PRN Administration SOLN Sodium Chloride 4 ml 12/03/24 07:00 12/03/24 08:11 Sodium Cl Rt Nancy 3% 4 Ml Nebu (Non-Formulary) INH 01/02/25 06:59 4 ml Q6HRRT EVY Administration Plan 39-year-old male with past medical history of hypertension and diabetes was not taking any medication was admitted to the hospital due to acute hypoxic respiratory failure likely secondary to community-acquired pneumonia versus new onset heart failure versus OHS. #Acute hypoxic respiratory failure likely secondary to #Community-acquired pneumonia #OHS #Acute decompensated heart failure, new onset? ?Patient came in with complaints of shortness of breath and cough as well as lower extremity swelling. ? Endorses that he cannot tolerate laying flat as he becomes short of breath and uncomfortable. ? Patient states that he snores at night. ? Chest x-ray showed some mild CHF pattern ? Chest CTA showed pneumonia of right upper lobe and left base ? Initial BNP was less than 20. Blood cultures grew GPC's in 1 bottle therefore placed patient on vancomycin. Plan: ? Continue azithromycin, vancomycin, and Rocephin ? Continue Lasix 20 mg IV daily ? Echo ordered ? Low-sodium diet ? Strict PRAKASH's ?BiPAP at bedtime ?Blood and sputum cultures pending ?Will continue to monitor #DM2 ?A1c 7.3 ? Glucose 114 Plan: ?ISS ? Accu-Cheks hypoglycemia protocol ordered ? Will continue to monitor #Hx of hypertension ? Patient's blood pressure has been stable today Plan: -Continue Losartan Disposition: Patient admitted to telemetry. Diet: Carb low and low sodium GI prophylaxis: protonix DVT prophylaxis: lovenox Code: Full Case disclosed with Attending Dr. Hunt and My senior Dr. Samayoa PGY2. Toby Galeano PGY1 Senior Resident Attestation: The patient was found to have growing GPC on blood culture, was started on Comycin and we will continue with ceftriaxone. We will continue with other current medical management. I discussed with and supervised the information technology internship physician involved in the care of this patient. I personally saw and examined the patient and discussed the assessment and plan with the entire medicine team, including my attending. I agree with the assessment and plan as documented above. Beto Samayoa MD PGY2 Internal Medicine Attending Provider Attestation/Addendum I reviewed labs, imaging, EKG, home medications and prior available records. Face to face evaluation was performed by me. I have personally examined the patient and discussed assessment and plan with the IM team. I reviewed the resident note and agree with the plan with exceptions as below. Acute hypoxic respiratory failure Bilateral pneumonia, lower lobes CHF exacerbation, unclear EF Morbid obesity BMI 48.6 Continue antibiotics. Cultures grew gram-positive cocci. Contamination? Started IV vancomycin Ordered echocardiogram Mucinex for the cough
[2024-12-03] MEDS: INSULIN LISPRO (AdmeLOG) 1 UNIT/0.01 ML UNIT SC ×2 (12:12→18:26)
[2024-12-03] MEDS: VANCOMYCIN/WATER 1250 MG IVPB 250 ML 120 MG IV ×2 (15:22→22:04)
[2024-12-03] MEDS: guaiFENesin/DM TABLET 1 EACH PO (17:35)
[2024-12-03] MEDS: AZITHROMYCIN 250 MG TABLET 500 MG PO (21:20)
[2024-12-04] VITALS (14 sets, daily range): BP systolic 123–150; BP diastolic 81–100; PULSE 87–105; RESP 18–21; TEMP 36.2–36.6; O2SAT 91–100
[2024-12-04] MEDS: ALBUTEROL/IPRATROPIUM (Duoneb) RT SOL 3 ML NEBU INH ×4 (00:48→19:22)
[2024-12-04] MEDS: SODIUM CL RT SOL 3% 4 ML NEBU (NON-FORMULARY) INH ×3 (01:01→19:22)
[2024-12-04] MEDS: VANCOMYCIN/WATER 1250 MG IVPB 250 ML 120 MG IV (05:43)
[2024-12-04 06:36] LABS: Basophils % (Auto) 0 % (0-2.5); Eosinophils # (Auto) 0.1 Thou/mm3 (0.0-0.5); Eosinophils % (Auto) 2 % (0-10); Hematocrit 47.9 % (41.0-53.0); Hemoglobin 15.4 g/dL (13.5-16.0); Immature Granulocytes % (Auto) 1 % (0-0); Immature Granulocytes Auto 0.03 Thou/mm3 (0.00-0.00); Lymphocytes # (Auto) 1.1 Thou/mm3 (1.0-4.8); Lymphocytes % (Auto) 17 % (10-50); Mean Corpuscular HGB Conc 32.2 g/dl (31.0-37.0); Mean Corpuscular Hemoglobin 29.8 pg (25.0-35.0); Mean Corpuscular Volume 93 fL (80-100); Monocytes # (Auto) 0.8 Thou/mm3 (0.0-0.8); Monocytes % (Auto) 13 % (0-12); Neutrophils # (Auto) 4.5 Thou/mm3 (1.8-7.7); Neutrophils % (Auto) 69 % (37-80); Nucleated Red Blood Cell % 0 /100 WBC (0); Platelet Count 201 Thou/mm3 (140-440); RDW Standard Deviation 47.1 fL (35.1-43.9); Red Blood Count 5.16 Miln/mm3 (4.50-5.90); White Blood Count 6.6 Thou/mm3 (3.8-10.6)
[2024-12-04 06:58] LABS: Anion Gap 7 (7-16); BUN/Creatinine Ratio 13 Ratio (12-20); Blood Urea Nitrogen 10 mg/dL (9-23); Calcium 9.3 mg/dL (8.3-10.6); Carbon Dioxide 36.8 mMol/L (20.0-31.0); Chloride 91 mMol/L (98-107); Creatinine (Component) 0.8 mg/dL (0.6-1.3); Estimated Creatinine Clearance 161.3 mL/min (>60); Glucose 161 mg/dL (74-106); Osmolality,Calculated 272 (275-295); Potassium 3.8 mMol/L (3.4-5.1); Sodium 135 mMol/L (136-145); eGFR > 60 See Note
[2024-12-04] MEDS: PANTOPRAZOLE 40 MG TABLET PO (09:27)
[2024-12-04] MEDS: FUROSEMIDE INJ 10 MG/ML 4ML VIAL 40 MG IVP (09:27)
[2024-12-04] MEDS: LOSARTAN POTASSIUM 25 MG TABLET PO (09:27)
[2024-12-04] MEDS: ENOXAPARIN SOD INJ 40 MG/0.4 ML SYRINGE SC (09:28)
[2024-12-04] MEDS: cefTRIAXone/D5w 1gm IV premix 50 ML IV (09:28)
--- NOTE | 2024-12-04 11:30 | ESPR_ITS ---
Documentation for date of: 12/04/24 Subjective Subjective Interval history: Patient was seen at bedside this morning. No overnight events. Patient states that he has been doing standard push-ups against one of the countertops and now he has some chest pain which is sore with palpation and thinks he may have strained a muscle. Patient had echo taken today we will wait for report. No other complaints at this time. Exam Vital Signs Temp Pulse Resp BP Pulse Ox O2 Del Method O2 Flow Rate 97.2 F 103 H 18 150/81 H 92 L Room Air 5 12/04/24 08:00 12/04/24 09:27 12/04/24 08:00 12/04/24 09:27 12/04/24 08:00 12/04/24 08:00 12/04/24 06:41 Narrative Exam General: A/O x3, obese on oxy mask Eyes: PERRL, EOMI. Anicteric, vision grossly intact. Ears: No ear pain, no ear discharge, Hearing grossly intact. Nose: No nasal discharge. Mouth/Throat: Dry mucous membranes, no redness, no lesions. Neck: Neck supple, non-tender, no cervical lymphadenopathy. Lungs: Decreased ZOILA likely due to body habitus, No accessory muscle use. Cardio: Normal S1/S2, regular rhythm, no murmurs, no JVD Abdomen: Soft, non-tender, no palpable masses, peristalsis present, no guarding or rebound. Extremities: Symmetrical, no significant deformities, no peripheral edema , non-tender, peripheral pulses presents. Skin: No rashes, no lesions, warm to touch. Neuro: No focal neurological deficits. Psych: Cooperative, appropriate mood and effect. Objective Labs 12/04/24 05:16 12/04/24 05:16 Labs: Laboratory Results - last 24 hr 12/04/24 05:16 WBC 6.6 RBC 5.16 Hgb 15.4 Hct 47.9 MCV 93 MCH 29.8 MCHC 32.2 RDW Std Deviation 47.1 H Plt Count 201 Neut % (Auto) 69 Lymph % (Auto) 17 [place] % (Auto) 13 H Eos % (Auto) 2 Baso % (Auto) 0 Neut # (Auto) 4.5 Lymph # (Auto) 1.1 [place] # (Auto) 0.8 Eos # (Auto) 0.1 Baso # (Auto) 0.0 Immature Gran # (Auto) 0.03 H Absolute Nucleated RBC 0.00 Immature Gran % 1 H Nucleated RBC % 0 Sodium 135 L Potassium 3.8 Chloride 91 L Carbon Dioxide 36.8 H Anion Gap 7 BUN 10 Creatinine 0.8 Estim Creat Clear Calc 161.3 eGFR > 60 BUN/Creatinine Ratio 13 Glucose 161 H Calculated Osmolality 272 L Calcium 9.3 ABG Interpretation ABG results: 12/03/24 00:50 ABG pH 7.35 ABG pCO2 70 H ABG pO2 63 L ABG HCO3 39 H ABG O2 Saturation 91 ABG Base Excess 9 H Quality Measures Quality Measures VTE prophylaxis Assessment & Plan Assessment Current Active Medications: Generic Name Dose Route Start Last Admin Trade Name Freq PRN Reason Stop Dose Admin Acetaminophen 650 mg 12/04/24 09:00 Acetaminophen 325 Mg Tablet PO 01/01/25 22:24 Q6H PRN Fever >100.3 Albuterol/Ipratropium 3 ml 12/03/24 01:00 12/04/24 06:40 Albuterol/Ipratropium (Duoneb) Rt Nancy 3 Ml Nebu INH 01/02/25 00:59 3 ml Q6HRRT EVY Administration Azithromycin 500 mg 12/03/24 21:00 12/03/24 21:20 Azithromycin 250 Mg Tablet PO 12/10/24 20:59 500 mg DAILY@2100 EVY Administration Dextrose 25 ml 12/03/24 08:15 Dextrose 50%-Water Inj 50 Ml Syringe IV 01/02/25 08:14 Q15MIN PRN BG 50-70 responsive npo pt Dextrose 50 ml 12/03/24 08:15 Dextrose 50%-Water Inj 50 Ml Syringe IV 01/02/25 08:14 Q15MIN PRN BG <50 OR BG <70 & pt unresponsive Enoxaparin Sodium 40 mg 12/03/24 09:00 12/04/24 09:28 Enoxaparin Sod Inj 40 Mg/0.4 Ml Syringe SC 12/17/24 08:59 40 mg QDAY EVY Administration Furosemide 40 mg 12/03/24 09:00 12/04/24 09:27 Furosemide Inj 10 Mg/Ml 4ml Vial IVP 01/02/25 08:59 40 mg QDAY EVY Administration Glucagon 1 mg 12/03/24 08:15 Glucagon Inj 1 Mg Vial IM Q15MIN PRN BG <70, and no IV access Guaifenesin/Dextromethorphan 1 each 12/03/24 15:39 12/03/24 17:35 Guaifenesin/Dm Tablet PO 01/02/25 15:38 1 each Q4HR PRN Administration COUGH Vancomycin HCl 250 mls @ 120 mls/hr 12/03/24 15:00 12/04/24 05:43 Vancomycin/Water 1250 Mg Ivpb IV 12/10/24 14:59 120 mls/hr TID EVY Administration Ceftriaxone Sodium/Dextrose 50 mls @ 100 mls/hr 12/04/24 09:00 12/04/24 09:28 Rocephin/D5w 1gm Iv Premix IV 12/11/24 08:59 100 mls/hr QDAY EVY Administration Insulin Human Lispro 0 unit 12/03/24 11:30 12/04/24 11:25 Insulin Lispro (Admelog) 1 Unit/0.01 Ml Unit SC 01/02/25 11:29 Not Given ACHS EVY Protocol Losartan Potassium 25 mg 12/03/24 09:00 12/04/24 09:27 Losartan Potassium 25 Mg Tablet PO 01/02/25 08:59 25 mg QDAY EVY Administration Magnesium Hydroxide 30 ml 12/02/24 22:25 Milk Of Magnesia Susp 30 Ml Udc PO 01/01/25 22:24 QDAY PRN CONSTIPATION Protocol Ondansetron HCl 4 mg 12/02/24 22:25 Ondansetron Inj 2 Mg/Ml Inj 2 Ml IV 01/01/25 22:24 Q6H PRN NAUSEA OR VOMITING Protocol Pantoprazole Sodium 40 mg 12/03/24 09:00 12/04/24 09:27 Pantoprazole 40 Mg Tablet PO 01/02/25 08:59 40 mg QDAY EVY Administration Pharmacy Consult 1 each 12/03/24 15:00 Vancomycin Pharmacy To Dose 1 Each Each IV 01/02/25 14:59 QDAY@1500 PRN CONSULT Sodium Chloride 3 ml 12/02/24 15:35 12/02/24 15:50 Sodium Chloride Rt Nancy 0.9% 3 Ml Nebu INH 01/01/25 15:34 3 ml PRN PRN Administration SOLN Sodium Chloride 4 ml 12/03/24 07:00 12/04/24 01:03 Sodium Cl Rt Nancy 3% 4 Ml Nebu (Non-Formulary) INH 01/02/25 06:59 Not Given Q6HRRT EVY Plan 39-year-old male with past medical history of hypertension and diabetes was not taking any medication was admitted to the hospital due to acute hypoxic respiratory failure likely secondary to community-acquired pneumonia versus new onset heart failure versus OHS. #Acute hypoxic respiratory failure likely secondary to #Community-acquired pneumonia #OHS #Acute decompensated heart failure, new onset? ?Patient came in with complaints of shortness of breath and cough as well as lower extremity swelling. ? Endorses that he cannot tolerate laying flat as he becomes short of breath and uncomfortable. ? Patient states that he snores at night. ? Chest x-ray showed some mild CHF pattern ? Chest CTA showed pneumonia of right upper lobe and left base ? Initial BNP was less than 20. Blood cultures grew GPC's in 1 bottle therefore placed patient on vancomycin. Plan: ? Continue azithromycin, vancomycin, and Rocephin ? Continue Lasix 40 mg IV daily ? Echo pending report ?Redrew blood cultures today ? Low-sodium diet ? Strict PRAKASH's ?BiPAP at bedtime ?Blood and sputum cultures pending ?Will continue to monitor #DM2 ?A1c 7.3 ? Glucose 161 Plan: ?ISS ? Accu-Cheks hypoglycemia protocol ordered ? Will continue to monitor #Hx of hypertension ? Patient's blood pressure has been stable today Plan: -Continue Losartan Disposition: Patient pending echo report and blood cultures. Diet: Carb low and low sodium GI prophylaxis: protonix DVT prophylaxis: lovenox Code: Full Case disclosed with Attending Dr. Hunt and My senior Dr. Samayoa PGY2. Toby Galeano PGY1 Senior Resident Attestation: The patient will undergo echocardiography done today, and his blood culture was GPC positive in 1 bottle, we will await specification and discharge this patient tomorrow. I discussed with and supervised the product marketing intern physician involved in the care of this patient. I personally saw and examined the patient and discussed the assessment and plan with the entire medicine team, including my attending. I agree with the assessment and plan as documented above. Beto Samayoa MD PGY2 Internal Medicine Attending Provider Attestation/Addendum I reviewed labs, imaging, EKG, home medications and prior available records. Face to face evaluation was performed by me. I have personally examined the patient and discussed assessment and plan with the IM team. I reviewed the resident note and agree with the plan with exceptions as below. Acute hypoxic respiratory failure Bilateral pneumonia, lower lobes CHF exacerbation, unclear EF Morbid obesity BMI 48.6 Continue antibiotics. Cultures grew gram-positive cocci. Contamination? St added vancomycin to ceftriaxone/azithromycin. Follow-up MRSA test Ordered echocardiogram Mucinex for the cough
[2024-12-04 14:02] LABS: Vancomycin,Trough 10.3 mcg/mL (5.0-10.0)
[2024-12-04] MEDS: Vancomycin Inj 1,000 MG, Vancomycin Inj 750 MG in SODIUM CHLORIDE 0.9% 500 ML 500 ML 166.667 MG IV ×2 (14:44→22:21)
--- NOTE | 2024-12-04 15:05 | PC.NURSE ---
Dr. Samayoa made aware of patient complaint dizziness while sitting, BP: 143/96, HR: 98, SpO2 92% on 6L. MD to assess patient at bedside.
--- NOTE | 2024-12-04 15:56 | PC.SS ---
rounding note: Patient pending echo. Pending blood cultures. Patient may need to follow up with his p.c.p. for an o/p sleep study per physician.
[2024-12-04] MEDS: AZITHROMYCIN 250 MG TABLET 500 MG PO (20:56)
[2024-12-05] VITALS (11 sets, daily range): BP systolic 109–146; BP diastolic 62–95; PULSE 65–105; RESP 16–24; TEMP 36.2–37.1; O2SAT 92–100
[2024-12-05] MEDS: ALBUTEROL/IPRATROPIUM (Duoneb) RT SOL 3 ML NEBU INH ×4 (01:09→19:52)
[2024-12-05] MEDS: SODIUM CL RT SOL 3% 4 ML NEBU (NON-FORMULARY) INH ×4 (01:09→13:21)
[2024-12-05] MEDS: Vancomycin Inj 1,000 MG, Vancomycin Inj 750 MG in SODIUM CHLORIDE 0.9% 500 ML 500 ML 166.667 MG IV ×3 (05:52→21:30)
[2024-12-05] MEDS: INSULIN LISPRO (AdmeLOG) 1 UNIT/0.01 ML UNIT SC ×3 (07:25→17:32)
[2024-12-05] MEDS: PANTOPRAZOLE 40 MG TABLET PO (09:56)
[2024-12-05] MEDS: FUROSEMIDE INJ 10 MG/ML 4ML VIAL 40 MG IVP (09:56)
[2024-12-05] MEDS: ACETAMINOPHEN 325 MG TABLET 650 MG PO (09:56)
[2024-12-05] MEDS: LOSARTAN POTASSIUM 25 MG TABLET PO (09:56)
[2024-12-05] MEDS: cefTRIAXone/D5w 1gm IV premix 50 ML IV (09:57)
[2024-12-05] MEDS: ENOXAPARIN SOD INJ 40 MG/0.4 ML SYRINGE SC (09:57)
[2024-12-05 13:55] LABS: Basophils % (Auto) 1 % (0-2.5); Eosinophils # (Auto) 0.1 Thou/mm3 (0.0-0.5); Eosinophils % (Auto) 1 % (0-10); Hematocrit 48.9 % (41.0-53.0); Hemoglobin 15.7 g/dL (13.5-16.0); Immature Granulocytes % (Auto) 0 % (0-0); Immature Granulocytes Auto 0.02 Thou/mm3 (0.00-0.00); Lymphocytes # (Auto) 1.2 Thou/mm3 (1.0-4.8); Lymphocytes % (Auto) 19 % (10-50); Mean Corpuscular HGB Conc 32.1 g/dl (31.0-37.0); Mean Corpuscular Hemoglobin 29.5 pg (25.0-35.0); Mean Corpuscular Volume 92 fL (80-100); Monocytes # (Auto) 0.6 Thou/mm3 (0.0-0.8); Monocytes % (Auto) 10 % (0-12); Neutrophils # (Auto) 4.3 Thou/mm3 (1.8-7.7); Neutrophils % (Auto) 70 % (37-80); Nucleated Red Blood Cell % 0 /100 WBC (0); Platelet Count 224 Thou/mm3 (140-440); RDW Standard Deviation 45.9 fL (35.1-43.9); Red Blood Count 5.32 Miln/mm3 (4.50-5.90); White Blood Count 6.2 Thou/mm3 (3.8-10.6)
[2024-12-05 14:12] LABS: Anion Gap 5 (7-16); BUN/Creatinine Ratio 14 Ratio (12-20); Blood Urea Nitrogen 11 mg/dL (9-23); Chloride 93 mMol/L (98-107); Creatinine (Component) 0.8 mg/dL (0.6-1.3); Estimated Creatinine Clearance 161.3 mL/min (>60); Glucose 136 mg/dL (74-106); Osmolality,Calculated 273 (275-295); Potassium 4.2 mMol/L (3.4-5.1); Sodium 136 mMol/L (136-145); Vancomycin,Trough 15.8 mcg/mL (5.0-10.0); eGFR > 60 See Note
--- NOTE | 2024-12-05 14:18 | ESPR_ITS ---
<Statement entered by Nathalia Hart MD - 12/05/24 21:33> Patient was examined bedside this morning, pending final blood cultures preliminary showed GPC's. We will do ambulatory oxygen measurement prior discharge . Patient was explained about weight loss medications and was advised to closely follow-up with primary care physician for it. anticipate discharge in next 24 to 48 hours. I discussed with and supervised my co-resident involved in the care of this patient. I agree with the assessment and plan as documented above. Nathalia Hart,PGY-3 Disclaimer: Despite multiple revisions, due to the dictation software being used, the document below may not be free of grammatical errors including phonetic/typographic errors. However, this does not deter from our commitment to providing health care in the patient's best interest in mind. Documentation for date of: 12/05/24 Subjective Subjective Interval history: Patient seen at bedside this morning. No overnight events. Patient's echo showed an EF of 55 to 60%. Blood cultures are still pending sensitivity, but it is most likely is m contamination. Anticipate DC in next 24-48hrs. Exam Vital Signs Temp Pulse Resp BP Pulse Ox O2 Del Method O2 Flow Rate 97.8 F 95 16 146/95 H 100 Nasal Cannula 4 12/05/24 12:00 12/05/24 13:26 12/05/24 13:26 12/05/24 12:00 12/05/24 13:26 12/05/24 12:00 12/05/24 13:26 Narrative Exam General: A/O x3, obese on oxy mask Eyes: PERRL, EOMI. Anicteric, vision grossly intact. Ears: No ear pain, no ear discharge, Hearing grossly intact. Nose: No nasal discharge. Mouth/Throat: Dry mucous membranes, no redness, no lesions. Neck: Neck supple, non-tender, no cervical lymphadenopathy. Lungs: Decreased ZOILA likely due to body habitus, No accessory muscle use. Cardio: Normal S1/S2, regular rhythm, no murmurs, no JVD Abdomen: Soft, non-tender, no palpable masses, peristalsis present, no guarding or rebound. Extremities: Symmetrical, no significant deformities, no peripheral edema , non-tender, peripheral pulses presents. Skin: No rashes, no lesions, warm to touch. Neuro: No focal neurological deficits. motor and sensory intact Psych: Cooperative, appropriate mood and effect. Objective Labs 12/06/24 04:41 12/06/24 04:41 Labs: Laboratory Results - last 24 hr 12/05/24 13:35 WBC 6.2 RBC 5.32 Hgb 15.7 Hct 48.9 MCV 92 MCH 29.5 MCHC 32.1 RDW Std Deviation 45.9 H Plt Count 224 Neut % (Auto) 70 Lymph % (Auto) 19 [place] % (Auto) 10 Eos % (Auto) 1 Baso % (Auto) 1 Neut # (Auto) 4.3 Lymph # (Auto) 1.2 [place] # (Auto) 0.6 Eos # (Auto) 0.1 Baso # (Auto) 0.0 Immature Gran # (Auto) 0.02 H Absolute Nucleated RBC 0.00 Immature Gran % 0 Nucleated RBC % 0 Sodium 136 Potassium 4.2 Chloride 93 L Carbon Dioxide 38.0 H Anion Gap 5 L BUN 11 Creatinine 0.8 Estim Creat Clear Calc 161.3 eGFR > 60 BUN/Creatinine Ratio 14 Glucose 136 H Calculated Osmolality 273 L Calcium 9.0 Vancomycin Trough 15.8 H ABG Interpretation ABG results: 12/03/24 00:50 ABG pH 7.35 ABG pCO2 70 H ABG pO2 63 L ABG HCO3 39 H ABG O2 Saturation 91 ABG Base Excess 9 H Quality Measures Quality Measures VTE prophylaxis Assessment & Plan Assessment Current Active Medications: Generic Name Dose Route Start Last Admin Trade Name Freq PRN Reason Stop Dose Admin Acetaminophen 650 mg 12/04/24 09:00 12/05/24 09:56 Acetaminophen 325 Mg Tablet PO 01/01/25 22:24 650 mg Q6H PRN Administration Fever >100.3 Albuterol/Ipratropium 3 ml 12/03/24 01:00 12/05/24 13:20 Albuterol/Ipratropium (Duoneb) Rt Nancy 3 Ml Nebu INH 01/02/25 00:59 3 ml Q6HRRT EVY Administration Azithromycin 500 mg 12/03/24 21:00 12/04/24 20:56 Azithromycin 250 Mg Tablet PO 12/10/24 20:59 500 mg DAILY@2100 EVY Administration Dextrose 25 ml 12/03/24 08:15 Dextrose 50%-Water Inj 50 Ml Syringe IV 01/02/25 08:14 Q15MIN PRN BG 50-70 responsive npo pt Dextrose 50 ml 12/03/24 08:15 Dextrose 50%-Water Inj 50 Ml Syringe IV 01/02/25 08:14 Q15MIN PRN BG <50 OR BG <70 & pt unresponsive Enoxaparin Sodium 40 mg 12/03/24 09:00 12/05/24 09:57 Enoxaparin Sod Inj 40 Mg/0.4 Ml Syringe SC 12/17/24 08:59 40 mg QDAY EVY Administration Furosemide 40 mg 12/03/24 09:00 12/05/24 09:56 Furosemide Inj 10 Mg/Ml 4ml Vial IVP 01/02/25 08:59 40 mg QDAY EVY Administration Glucagon 1 mg 12/03/24 08:15 Glucagon Inj 1 Mg Vial IM Q15MIN PRN BG <70, and no IV access Guaifenesin/Dextromethorphan 1 each 12/03/24 15:39 12/03/24 17:35 Guaifenesin/Dm Tablet PO 01/02/25 15:38 1 each Q4HR PRN Administration COUGH Ceftriaxone Sodium/Dextrose 50 mls @ 100 mls/hr 12/04/24 09:00 12/05/24 09:57 Rocephin/D5w 1gm Iv Premix IV 12/11/24 08:59 100 mls/hr QDAY EVY Administration Vancomycin HCl 1,000 mg/ 500 mls @ 166.667 mls/hr 12/04/24 14:15 12/05/24 05:52 Vancomycin HCl 750 mg/ Sodium IV 12/11/24 14:14 166.667 mls/hr Chloride TID EVY Administration Insulin Human Lispro 0 unit 12/03/24 11:30 12/05/24 12:14 Insulin Lispro (Admelog) 1 Unit/0.01 Ml Unit SC 01/02/25 11:29 1 unit ACHS EVY Administration Protocol Losartan Potassium 25 mg 12/03/24 09:00 12/05/24 09:56 Losartan Potassium 25 Mg Tablet PO 01/02/25 08:59 25 mg QDAY EVY Administration Magnesium Hydroxide 30 ml 12/02/24 22:25 Milk Of Magnesia Susp 30 Ml Udc PO 01/01/25 22:24 QDAY PRN CONSTIPATION Protocol Ondansetron HCl 4 mg 12/02/24 22:25 Ondansetron Inj 2 Mg/Ml Inj 2 Ml IV 01/01/25 22:24 Q6H PRN NAUSEA OR VOMITING Protocol Pantoprazole Sodium 40 mg 12/03/24 09:00 12/05/24 09:56 Pantoprazole 40 Mg Tablet PO 01/02/25 08:59 40 mg QDAY EVY Administration Pharmacy Consult 1 each 12/03/24 15:00 Vancomycin Pharmacy To Dose 1 Each Each IV 01/02/25 14:59 QDAY@1500 PRN CONSULT Sodium Chloride 3 ml 12/02/24 15:35 12/02/24 15:50 Sodium Chloride Rt Nancy 0.9% 3 Ml Nebu INH 01/01/25 15:34 3 ml PRN PRN Administration SOLN Sodium Chloride 4 ml 12/03/24 07:00 12/05/24 13:21 Sodium Cl Rt Nancy 3% 4 Ml Nebu (Non-Formulary) INH 01/02/25 06:59 4 ml Q6HRRT EVY Administration Plan 39-year-old male with past medical history of hypertension and diabetes was not taking any medication was admitted to the hospital due to acute hypoxic respiratory failure likely secondary to community-acquired pneumonia versus new onset heart failure versus OHS. #Acute hypoxic respiratory failure likely secondary to #Community-acquired pneumonia #OHS #Acute decompensated heart failure, new onset? ?Patient came in with complaints of shortness of breath and cough as well as lower extremity swelling. ? Endorses that he cannot tolerate laying flat as he becomes short of breath and uncomfortable. ? Patient states that he snores at night. ? Chest x-ray showed some mild CHF pattern ? Chest CTA showed pneumonia of right upper lobe and left base ? Initial BNP was less than 20. - Blood cultures grew GPC's in 1 bottle therefore placed patient on vancomycin. -GPC's likely contamination, but will await for sensitivity tomorrow. -DC'd azithro 12/03-12/05/2024 Plan: ? Continue vancomycin, and Rocephin ? Continue Lasix 40 mg IV daily ?Redrew blood cultures today ? Low-sodium diet ? Strict PRAKASH's ?BiPAP at bedtime ?Blood cultures sensitivity pending ?Will continue to monitor #DM2 ?A1c 7.3 ? Glucose 136 Plan: ?ISS ? Accu-Cheks hypoglycemia protocol ordered ? Will continue to monitor #Hx of hypertension ? Patient's blood pressure has been stable today Plan: -Continue Losartan Disposition: Patient pending sensitivity report of blood cultures. Diet: Carb low and low sodium GI prophylaxis: protonix DVT prophylaxis: lovenox Code: Full Case disclosed with Attending Dr. Granados and My senior Dr. Hart PGY3. Toby Galeano PGY1 Attending Provider Attestation/Addendum I have examined the patient, reviewed labs and imaging findings, discussed the case with the resident(s), and reviewed entered orders. I agree with the plan of care as outlined in this note, with these additional summaries/recommendations: Patient seen at bedside. No acute overnight events. Patient is admitted for acute hypoxic and hypercapnic respiratory failure which is likely multifactorial secondary to CECILIA/OHS plus community-acquired pneumonia. Continue IV antibiotics. Continue supplemental oxygen and wean as tolerated. Discussed with patient that he would benefit from outpatient referral to pulmonology for sleep study. Patient was also counseled on weight loss and to follow-up with primary care provider. Echocardiogram showed normal ejection fraction of 55 to 60%. CTA showed no pulmonary artery emboli. Blood cultures were taken and 1 of 2 showing GPC although we feel strongly this is likely contamination. Repeat blood cultures on 12/04/2024 showed no growth at 24 hours. We will wait for further culture results and anticipate discharge in the next [address] Granados
--- NOTE | 2024-12-05 15:31 | PC.NURSE ---
Patient's oxygen saturation on room air, at rest, reading 83%. After applying 2 L of Oxygen via nasal cannula, SPO2 reading at 93%.
[2024-12-05] MEDS: AZITHROMYCIN 250 MG TABLET 500 MG PO (21:28)
[2024-12-05] MEDS: FLUTICASONE NAS SPRAY 0.05% 16 GM BTL 1 SPRAY NASAL (21:39)
[2024-12-05] MEDS: guaiFENesin/DM TABLET 1 EACH PO (23:18)
[2024-12-06] VITALS (10 sets, daily range): BP systolic 108–141; BP diastolic 65–92; PULSE 69–103; RESP 18–20; TEMP 36.1–36.8; O2SAT 91–100; BMI 48.4
[2024-12-06] MEDS: ALBUTEROL/IPRATROPIUM (Duoneb) RT SOL 3 ML NEBU INH ×3 (03:15→13:11)
[2024-12-06] MEDS: SODIUM CL RT SOL 3% 4 ML NEBU (NON-FORMULARY) INH ×3 (03:15→13:10)
[2024-12-06] MEDS: guaiFENesin/DM TABLET 1 EACH PO (04:16)
[2024-12-06 06:03] LABS: Basophils % (Auto) 1 % (0-2.5); Eosinophils # (Auto) 0.1 Thou/mm3 (0.0-0.5); Eosinophils % (Auto) 1 % (0-10); Hematocrit 46.3 % (41.0-53.0); Hemoglobin 15.1 g/dL (13.5-16.0); Immature Granulocytes % (Auto) 0 % (0-0); Immature Granulocytes Auto 0.01 Thou/mm3 (0.00-0.00); Lymphocytes # (Auto) 1.4 Thou/mm3 (1.0-4.8); Lymphocytes % (Auto) 23 % (10-50); Mean Corpuscular HGB Conc 32.6 g/dl (31.0-37.0); Mean Corpuscular Hemoglobin 29.6 pg (25.0-35.0); Mean Corpuscular Volume 91 fL (80-100); Monocytes # (Auto) 0.5 Thou/mm3 (0.0-0.8); Monocytes % (Auto) 8 % (0-12); Neutrophils # (Auto) 4.2 Thou/mm3 (1.8-7.7); Neutrophils % (Auto) 67 % (37-80); Nucleated Red Blood Cell % 0 /100 WBC (0); Platelet Count 203 Thou/mm3 (140-440); RDW Standard Deviation 45.2 fL (35.1-43.9); White Blood Count 6.3 Thou/mm3 (3.8-10.6)
[2024-12-06] MEDS: Vancomycin Inj 1,000 MG, Vancomycin Inj 750 MG in SODIUM CHLORIDE 0.9% 500 ML 500 ML 166.667 MG IV ×2 (06:08→14:44)
[2024-12-06 06:24] LABS: Anion Gap 7 (7-16); BUN/Creatinine Ratio 13 Ratio (12-20); Blood Urea Nitrogen 9 mg/dL (9-23); Carbon Dioxide 36.4 mMol/L (20.0-31.0); Chloride 93 mMol/L (98-107); Creatinine (Component) 0.7 mg/dL (0.6-1.3); Estimated Creatinine Clearance 184.3 mL/min (>60); Glucose 168 mg/dL (74-106); Osmolality,Calculated 274 (275-295); Potassium 3.6 mMol/L (3.4-5.1); Sodium 136 mMol/L (136-145); eGFR > 60 See Note
[2024-12-06] MEDS: cefTRIAXone/D5w 1gm IV premix 50 ML IV (08:42)
[2024-12-06] MEDS: ENOXAPARIN SOD INJ 40 MG/0.4 ML SYRINGE SC (08:43)
[2024-12-06] MEDS: FUROSEMIDE INJ 10 MG/ML 4ML VIAL 40 MG IVP (08:43)
[2024-12-06] MEDS: INSULIN LISPRO (AdmeLOG) 1 UNIT/0.01 ML UNIT SC ×2 (08:43→11:50)
[2024-12-06] MEDS: LOSARTAN POTASSIUM 25 MG TABLET PO (08:44)
[2024-12-06] MEDS: PANTOPRAZOLE 40 MG TABLET PO (08:44)
--- NOTE | 2024-12-06 09:30 | PC.SS ---
Addendum entered by Rosita Anguiano 12/06/24 16:04: SS spoke to [facility]. they will coordinate with [facility] in [place] to deliver 02 tonight by 6p.m. Addendum entered by Rosita Anguiano 12/06/24 15:15: SS attempted to contact [facility] after faxing documentation requested earlier today. Phone lines were full. SS will resend fax and call [facility] urgent line again. Pending 02 Addendum entered by Rosita Anguiano 12/06/24 11:57: SS received a call from [facility] @ [phone], . They confirmed they are aware patient needs new 02. They will deliver 3-4 hours after we submit orders and documentation to their additional fax line for urgent request. SS updated nursing and patient. Original Note: Follow up note: Patient needs new home 02. Insurance is out of area [facility]. SS sent orders and documentation through [employer]. D/c set for today once we receive 02.
[2024-12-06] MEDS: POTASSIUM CHLORIDE 20 mEq TABCR 40 MEQ PO (10:02)
--- NOTE | 2024-12-06 14:42 | ESDS_ITS ---
Planned Discharge Date 12/06/24 DS: Providers Provider Date of admission: 12/02/24 22:25 Primary care physician: Physician No Primary/Family Admitting Provider: Contreras Davison MD Attending Provider on Admission: Arjun Granados MD Attending Provider on DC: Arjun Granados MD Discharging Provider: Arjun Granados MD DS: Diagnosis Problem List Completed Was Problem List Reviewed/Reconciled?: Yes Hospital Course Hospital Course Hospital course: 39-year-old male with past medical history of hypertension and diabetes was not taking any medication was admitted to the hospital due to acute hypoxic respiratory failure likely secondary to community-acquired pneumonia versus new onset heart failure versus OHS. In the ED patient came in with complaints of shortness of breath, cough, chest pressure, and wheezing. Initially patient was hypertensive, tachypneic, tachycardic, and afebrile. Initial labs were relevant for hypercapnia and hypoxia on ABG and metabolic alkalosis due to compensation. Initial imaging included chest x-ray which showed moderate heart failure pattern, EKG showed sinus tachycardia with first-degree AV block, and chest CTA showed mild pneumonia of right upper lobe and left base. During admission p atient improved and he did not spike any fevers and his WBCs did not spike as well. He was placed on antibiotics as well as Lasix. He had an echo that showed an EF of 55 to 60%. Patient's blood cultures did grow GPC's in 1 bottle only. Spoke with microbiology department and stated that GPC was coagulase- negative. HIs repeat blood cultures were negative and others blood cultures on the same day of initial blood cultures draw were negative as well, therefore we have very low suspicion of bacteremia and think that this may be a contaminant. Patient remained stable throughout his hospital stay, but did not require oxygen with ambulation as he dropped to the 70s O2 sats. Patient at the time of discharge was stable enough to be discharged home. Discharge plan: ? Please follow-up with your primary care physician in 1 week after discharge ? You have been started on metformin 500 mg twice daily, losartan 25 mg daily, cefuroxime 500 mg twice daily, and albuterol inhaler. ?You were started on home oxygen to use while ambulating. ? Recommend to get a pulmonology referral to follow-up due to CO2 retention and need for sleep study ? Recommend using compression stockings ?Please come to the ER if symptoms persist or worsen Problem list: #Acute hypoxic and hypercapnic respiratory failure likely secondary to #Community-acquired pneumonia #OHS #Acute decompensated heart failure with preserved ejection fraction EF 55 to 60% 11/2024 #DM2 #Hx of hypertension Case disclosed with Attending Dr. Granados and My senior Dr. Samayoa PGY2. Toby Stewart Froylan PGY1 Senior Resident Attestation: I discussed with and supervised the pr intern physician involved in the care of this patient. I personally saw and examined the patient and discussed the assessment and plan with the entire medicine team, including my attending. I agree with the discharge plan as documented above. Beto Samayoa MD PGY2 Internal Medicine Status at Discharge Overall status at discharge: patient is progressing back to baseline Time Spent with Patient Time attestation: Total time spent providing and/or coordinating discharge services:>35 min Exam Vital Signs Temp Pulse Resp BP Pulse Ox O2 Del Method O2 Flow Rate 97.1 F 97 18 123/77 100 Nasal Cannula 1 12/06/24 12:00 12/06/24 13:12 12/06/24 13:12 12/06/24 12:00 12/06/24 13:12 12/06/24 12:00 12/06/24 13:12 Narrative Exam General: A/O x3, obese on NC Eyes: PERRL, EOMI. Anicteric, vision grossly intact. Ears: No ear pain, no ear discharge, Hearing grossly intact. Nose: No nasal discharge. Mouth/Throat: Dry mucous membranes, no redness, no lesions. Neck: Neck supple, non-tender, no cervical lymphadenopathy. Lungs: Expiratory wheezing, No accessory muscle use. Cardio: Normal S1/S2, regular rhythm, no murmurs, no JVD Abdomen: Soft, non-tender, no palpable masses, peristalsis present, no guarding or rebound. Extremities: Symmetrical, no significant deformities, no peripheral edema , non-tender, peripheral pulses presents. Skin: No rashes, no lesions, warm to touch. Neuro: No focal neurological deficits. motor and sensory intact Psych: Cooperative, appropriate mood and effect. Discharge Plan Plan Patient Disposition: HOME (Self Care) Patient condition on transfer: Stable Care Plan Goals: ? Please follow-up with your primary care physician in 1 week after discharge ? You have been started on metformin 500 mg twice daily, losartan 25 mg daily, cefuroxime 500 mg twice daily, and albuterol inhaler. ?You were started on home oxygen to use while ambulating. ? Recommend to get a pulmonology referral to follow-up due to CO2 retention and need for sleep study ? Recommend using compression stockings ?Please come to the ER if symptoms persist or worsen Prescriptions/Referrals Prescriptions/Med Rec: New losartan 25 mg Tablet 25 mg PO QDAY 30 Days Qty: 30 0RF cefuroxime axetil 500 mg tablet 500 mg PO BID 3 Days Qty: 6 0RF metformin 500 mg tablet 500 mg PO BID 30 Days Qty: 60 0RF albuterol sulfate 90 mcg/actuation HFA aerosol inhaler 1 inh inhalation QID PRN (Reason: shortness of breath or wheezing) Qty: 6.7 0RF Referrals: No Primary/Family,Physician [Primary Care Provider] - Patient/Caregiver Discharge Instructions Other Discharge Activity Instructions:: ? Please follow-up with your primary care physician in 1 week after discharge ? You have been started on metformin 500 mg twice daily, losartan 25 mg daily, cefuroxime 500 mg twice daily, and albuterol inhaler. ?You were started on home oxygen to use while ambulating. ? Recommend to get a pulmonology referral to follow-up due to CO2 retention and need for sleep study ? Recommend using compression stockings ?Please come to the ER if symptoms persist or worsen Print Language: Persian Stand Alone Forms: [email or web address] Award Info., Patient Portal Info Letter Discharge Order Discharge Orders: Discharge (Routine); Ordered 12/06/24 Ordered By: Nathalia Hart Quality Discharge Quality Measures VTE prophylaxis Attestestation Attestation I have examined the patient, reviewed labs and imaging findings, discussed the case with the resident(s), and reviewed entered orders. I agree with the plan of care as outlined in this note. Dr. Granados
== END 2024-12-06 20:22 | disposition home or self-care (01) | DRG 193 ==
LOC: SERX 18:32 → SERHOLD 22:58 → S3SX 12-03 00:27
PROVIDERS: Nurse Practitioner Family; Student in an Organized Health Care Education/Training Program; Admitting Provider Internal Medicine; Emergency Provider Emergency Medicine; Visit Provider Student in an Organized Health Care Education/Training Program
DX: J18.9 Pneumonia, unspecified organism (principal); I50.33 Acute on chronic diastolic (congestive) heart failure; J96.01 Acute respiratory failure with hypoxia; I11.0 Hypertensive heart disease with heart failure; J96.02 Acute respiratory failure with hypercapnia; E66.2 Morbid (severe) obesity with alveolar hypoventilation; Z68.42 Body mass index [BMI] 45.0-49.9, adult; E87.4 Mixed disorder of acid-base balance; E11.9 Type 2 diabetes mellitus without complications; I44.0 Atrioventricular block, first degree; Z79.899 Other long term (current) drug therapy
CPT/HCPCS: 36415; 36600; 71046; 71275; 80048; 80053; 80061; 80202; 80307; 81001; 82803; 83036; 83605; 83615; 83690; 83880; 84100; 84145; 84439; 84443; 84484; 85025; 85610; 85730; 87040; 87077; 87081; 87186; 87205; 87400; 87811; 93005; 93225; 93306; 94640; 94660; 94664; 94762; 96374; 99291; A4649; A9270; J0456; J0696; J1650; J1815; J1940; J3371; J3372; J7040; J7050; Q9967